=== PATIENT | female | born 1965 | race Caucasian/White ===

== ENCOUNTER 2021-08-12 18:14 | Emergency (ER) | payer OTHER ==
[~2021-08-12] VITALS: Ht 157.5 cm; Wt 99.8 kg
[~2021-08-12 18:14] MED LIST: AMBIEN PAK10 MG PO; AMLODIPINE BESY10 MG PO; ASA325 PO; BUSPIRONE PO; EFFEXOR XR 75MG75 MG PO; LISINOPRIL40 MG PO; LONITEN2.5 MG PO; METOPROLOL SUCC25 MG PO; METOPROLOL TART25 MG PO; POTASSIUM GLUCO90 MG PO; SPIRIVA HANDIH18 MCG INH; Z.0.BYSTOLIC10 MG PO; Z.0.ESTRACE0.5 MG PO; Z.0.LISINOPRIL40 MG PO; Z.0.REGLAN10 MG PO; Z.0.TRIAMTERENE-HC1 PO
[2021-08-12] MEDS ORDERED: FENTANYL CITRATE/PF 100MCG/2 ML INJ IJ ONE (18:30)
[2021-08-12] MEDS ORDERED: ONDANSETRON HCL INJ 2MG/ML 2ML 2 MG/ML VIAL IV NR ×2 (19:15→19:30)
[2021-08-12] MEDS ORDERED: KETAMINE HCL INJ 50 MG/ML 10 ML VIAL IV NR (19:15)
[2021-08-12] MEDS ORDERED: HYDROMORPHONE 1MG/1ML INJ IV NR (19:30)
[2021-08-12] MEDS ORDERED: HYDROMORPHONE 1MG/1ML INJ ONE (19:30)
[2021-08-12 21:33] VITALS: BP 161/85
== END 2021-08-12 21:00 | disposition home or self-care (01) ==
LOC: ER 18:22
DX: M24.411 Recurrent dislocation, right shoulder (principal); X50.1XXA Overexertion from prolonged static or awkward postures, initial encounter; Y93.84 Activity, sleeping; Y92.003 Bedroom of unspecified non-institutional (private) residence as the place of occurrence of the external cause; I10 Essential (primary) hypertension; F41.9 Anxiety disorder, unspecified; Z87.19 Personal history of other diseases of the digestive system
CPT/HCPCS: 23650; 73030; 99284; J1170; J2405; J3010